=== PATIENT | female | born 1970 | race Caucasian/White ===

== ENCOUNTER 2020-02-13 10:57 | Outpatient (CLI) | payer BC, SELFPAY ==
--- NOTE | 2020-02-13 11:04 | MM_ITS ---
WS: [id number] BILATERAL SCREENING DIGITAL MAMMOGRAM WITH CAD HISTORY: SCREENING COMPARISON: 02/14/2019, 01/10/2019 and 03/24/2013 Bilateral CC and MLO views submitted. Computer aided detection analyzed. Breast composition: The breasts are heterogeneously dense, which may obscure small masses. No suspici ous masses, microcalcifications or architectural distortion. Nodule in the posterior RIGHT breast is again identified and stable since 2012. No interval change or distortion. MM/[place] [id number] IMPRESSION: BI-RADS: 2-Benign FOLLOW UP: 1 Year Follow-up
== END 2020-02-13 10:58 | disposition home or self-care (01) ==
LOC: RADSHAW 11:01
PROVIDERS: PCP Nurse Practitioner Family; Visit Provider Nurse Practitioner Family
DX: Z12.31 Encounter for screening mammogram for malignant neoplasm of breast (principal)
CPT/HCPCS: 77067

== ENCOUNTER 2020-03-06 14:57 | Outpatient (CLI) | payer BC, SELFPAY ==
--- NOTE | 2020-03-06 15:08 | XR_ITS ---
WS: [id number] LEFT KNEE: 2 VIEW(S) TECHNIQUE: AP and lateral. HISTORY: PAIN IN LEFT KNEE COMPARISON: None available. No fracture or dislocation. No joint space narrowing or osteophytes. No joint effusion. No soft tissue abnormality. XR/XR knee LT 1-2V [id number] IMPRESSION: Normal LEFT knee.
== END 2020-03-06 14:58 | disposition home or self-care (01) ==
LOC: RADWPI 14:59
PROVIDERS: PCP Nurse Practitioner Family; Visit Provider Nurse Practitioner Family
DX: M25.562 Pain in left knee (principal)
CPT/HCPCS: 73560

== ENCOUNTER 2020-04-09 10:55 | Outpatient (RCR) | payer BC, SELFPAY | END 2020-04-16 23:59 | disposition home or self-care (01) | LOC: SPT 10:55 | PROVIDERS: PCP Nurse Practitioner Family; Referring Provider Orthopaedic Surgery; Visit Provider Orthopaedic Surgery | DX: M25.562 Pain in left knee (principal) | CPT/HCPCS: 97110; 97161 ==

== ENCOUNTER 2020-04-17 06:00 | Outpatient (RCR) | payer BC, SELFPAY | END 2020-05-07 23:00 | disposition home or self-care (01) | LOC: SPT 06:00 | PROVIDERS: PCP Nurse Practitioner Family; Referring Provider Orthopaedic Surgery; Visit Provider Orthopaedic Surgery | DX: M25.562 Pain in left knee (principal) | CPT/HCPCS: 97110 ==

== ENCOUNTER 2021-12-17 10:25 | Outpatient (CLI) | payer BC, SELFPAY ==
--- NOTE | 2021-12-17 10:33 | MM_ITS ---
WS: [id number] BILATERAL SCREENING DIGITAL BREAST TOMOSYNTHESIS MAMMOGRAM WITH CAD HISTORY: SCREENING COMPARISON: 02/13/2020, 01/10/2019 Bilateral CC and MLO views with tomosynthesis and synthetic mammography submitted. Computer aided det ection analyzed. Breast composition: There are scattered areas of fibroglandular density. No suspicious masses, microc alcifications or architectural distortion. Focal asymmetry in the upper-outer quadrant of the LEFT br east is stable since 02/13/2020. No suspicious mass or distortion. MM/[place] [id number] IMPRESSION: BI-RADS: 2-Benign FOLLOW UP: 1 Year Follow-up
== END 2021-12-17 10:26 | disposition home or self-care (01) ==
PROVIDERS: PCP Nurse Practitioner Family; Visit Provider Nurse Practitioner Family
DX: Z12.31 Encounter for screening mammogram for malignant neoplasm of breast (principal)
CPT/HCPCS: 77063; 77067

== ENCOUNTER 2022-01-31 06:48 | Outpatient (CLI) | payer BC, SELFPAY ==
--- NOTE | 2022-01-31 | CT_ITS ---
WS: [id number] CT head wo con* [id number] REASON FOR EXAM: DIZZINESS AND GIDDINESS IV CONTRAST ADMINISTERED: None TOTAL EXAM DLP: 968.[address] scans at [facility] use at least one of these dose optimization techniques: automat ed exposure control; mA and/or kV adjustment per patient size (includes targeted exams where dose is matched to clinical indication); or iterative reconstruction. FINDINGS: Examination is unchanged compared to previous study of 03/22/2016. No midline shift or other significant mass effect. No findings of intracranial hemorrhage. No significant focal brain parenchymal abnormality. The brainstem is normal. Normal CSF spaces. Base of skull and bony calvarium are intact. CT/CT head wo con* [id number] IMPRESSION: No significant intracranial abnormality.
== END 2022-01-31 06:49 | disposition home or self-care (01) ==
LOC: RAD 06:48
PROVIDERS: PCP Nurse Practitioner Family; Visit Provider Nurse Practitioner Family
DX: R42 Dizziness and giddiness (principal)
CPT/HCPCS: 70450

== ENCOUNTER → 2022-06-09 14:32 | Outpatient (BNVA) | payer BC, SELFPAY | PROVIDERS: PCP Nurse Practitioner Family; Visit Provider Podiatrist Foot & Ankle Surgery | DX: M72.2 Plantar fascial fibromatosis (principal) | CPT/HCPCS: 73630 ==

== ENCOUNTER 2022-07-10 06:53 | Day surgery (SDC) | payer BC, SELFPAY ==
[2022-07-08 08:39] VITALS: BMI 29.0
[2022-07-10 07:08] VITALS: BP 120/68; PULSE 60; RESP 16; O2SAT 98
[2022-07-10] MEDS: sodium chloride 0.9% 1,000 ML 30 ML IV (07:21)
--- NOTE | 2022-07-10 08:03 | ANES.PREANE2 ---
Pre-Anesthetic Assessment Height/Weight: Height 1.68 m Weight 81.647 kg Pulse Resp BP Pulse Ox O2 Del Method 60 16 120/68 98 07/10/22 07:08 07/10/22 07:08 07/10/22 07:08 07/10/22 07:08 07/10/22 07:08 Preop Diagnosis: screening Operation Date: 07/10/22 08:30 Proposed Procedures p Colonoscopy 83209,z12.11(Not Applicable) - Rebel Alexander, DO Was Beta Deny taken within 24 hours: N/A Was Clonidine taken within 24 hours: N/A Last intake: Intake Last Liquid Date 07/09/22 Last Liquid Time 22:00 Last Solid Date 07/08/22 Last Solid Time 16:00 Last Intake: 00:01 Exam alert and oriented x 3 Airway Submandibular: within normal limits Cervical ROM: within normal limits Mallampati: Class II Dentition: full History/ROS No significant history except as noted Pulmonary None reported CV/HEM None reported None reported Hepatic None reported GI None reported Metabolic [place] [facility] [place] reported Neuropsych None reported Anesthetic Plan ASA status: 1 Anesthesia: MAC Risk of > 500 ml blood loss (7ml/kg in children): No Medications/Allergies Home Medications Medication Instructions Recorded Confirmed Last Taken Type levothyroxine 25 mcg tablet 50 mcg PO DAILY 03/28/20 07/08/22 07/09/22 History sertraline 25 mg tablet 50 mg PO DAILY 03/28/20 07/08/22 07/09/22 History triamcinolone acetonide 0.1 % 1 applic topical DAILY PRN Skin 03/28/20 07/08/22 Unknown History topical cream Cleansing meloxicam 15 mg tablet 15 mg PO DAILY #30 tabs 07/08/22 07/09/22 07/09/22 Rx Allergies Allergy/AdvReac Type Severity Reaction Status Date / Time codeine AdvReac vomiting Verified 07/10/22 07:06 Current Medications Generic Name Dose Route Start Last Admin Trade Name Freq PRN Reason Stop Dose Admin Sodium Chloride 1,000 mls @ 30 mls/hr 07/10/22 07:00 07/10/22 07:21 Sodium Chloride 0.9% IV 07/11/22 06:59 30 mls/hr .Q24H CEZAR Administration PFSH Anesthesia Social History Smoking and tobacco status: never smoked Alcohol intake: current Alcohol intake frequency: few times a month Data Anesthesia Cardiac Studies: No Data to Display
--- NOTE | 2022-07-10 08:25 | PM.HP ---
Providers/Chief Complaint Primary Care Provider: Reena Randhawa NP Chief Complaint: Z12.11 History of Present Illness Natasha Wilder is a 52 year old female here for her first screening colonoscopy. She denies any family history of colon cancer, abdominal pain, nausea, emesis, diarrhea, constipation, hematochezia and/or melena Review of Systems General: Reports: 10 or more systems reviewed and unremarkable except in HPI and below Medications/Allergies Home Medications Medication Instructions Recorded Confirmed Last Taken Type levothyroxine 25 mcg tablet 50 mcg PO DAILY 03/28/20 07/08/22 07/09/22 History sertraline 25 mg tablet 50 mg PO DAILY 03/28/20 07/08/22 07/09/22 History triamcinolone acetonide 0.1 % 1 applic topical DAILY PRN Skin 03/28/20 07/08/22 Unknown History topical cream Cleansing meloxicam 15 mg tablet 15 mg PO DAILY #30 tabs 07/08/22 07/09/22 07/09/22 Rx Allergies Allergy/AdvReac Type Severity Reaction Status Date / Time codeine AdvReac vomiting Verified 07/10/22 07:06 PFSH Acute PFSH: Social History Smoking and tobacco status: never smoked Alcohol intake: current Alcohol intake frequency: few times a month Vitals/I&O/Wt Last Vital Signs Pulse 60 07/10/22 07:08 Resp 16 07/10/22 07:08 BP 120/68 07/10/22 07:08 Pulse Ox 98 07/10/22 07:08 O2 Del Method 07/10/22 07:08 Weight last 48 hrs Weight 180 lb Physical Exam Narrative: General : Patient is well developed , no acute distress, oriented x3 Head : Normal cephalic, a-traumatic. Ears : Pinnae and external canal are normal. Hearing is normal. Eyes : PERRLA, Sclera and injection are normal. No conjunctival discharge. Nose : Mucous membranes are without erythema. Throat : buccal mucosa is normal, gums are without significant recession or hypertrophy. Lungs : Equal chest rise bilaterally, no use of accessory muscles, trachea is midline. Cor : Rate and rhythm are normal. Abdomen : Soft, ND, NT, no g/r/m Extremities : No edema, no cyanosis or clubbing, dorsalis pedis pulses are present bilaterally, non-tender to palpation of calves. Upper extremities are normal bilaterally. Back : non-tender to palpation, no CVA tenderness. Neuro : CN II - XII intact, Upper and lower extremities have equal and full strength A&P Assessment and plan (1) Colon cancer screening: Plan Colonoscopy The risks and benefits of the procedure, including bleeding, infection, intestinal perforation requiring surgery, missed lesion were explained to the patient. The patient is understanding of the risks and wishes to proceed. Attestations Medical Necessity Statement*: Home Coding Level of Care Code Acute Code for Chg Fwd Diagnoses Colon cancer screening Z12.11
[2022-07-10 08:53] VITALS: BP 117/76; PULSE 65; RESP 20; TEMP 36.2; O2SAT 94
[2022-07-10 09:08] VITALS: BP 134/84; PULSE 57; RESP 18; O2SAT 100
--- NOTE | 2022-07-10 13:25 | ANE.PACU2 ---
Inpatient post-anesthesia follow up: Airway intact: Yes Vital signs: Temperature 97.1 F Pulse Rate 57 Respiratory Rate 18 Blood Pressure 134/84 Pulse Oximetry 100 Oxygen Delivery Me thod Room Air Oxygen Flow Rate Fraction of Inspir ed Oxygen Hydration adequate: Yes Nausea and vomiting: No Pain level: 1 Mental status: Baseline
== END 2022-07-10 09:38 | disposition home or self-care (01) ==
PROVIDERS: PCP Nurse Practitioner Family; Visit Provider Surgery
PROC: 0DJD8ZZ Inspection of Lower Intestinal Tract, Via Natural or Artificial Opening Endoscopic (ICD-10-PCS; CPT 45378; principal; 2022-07-10 08:30)
DX: Z12.11 Encounter for screening for malignant neoplasm of colon (principal); D12.5 Benign neoplasm of sigmoid colon; D12.8 Benign neoplasm of rectum
CPT/HCPCS: 45385; 88305; J2704; J7030

== ENCOUNTER 2022-12-22 10:00 | Outpatient (CLI) | payer BC, SELFPAY | END 2022-12-22 10:01 | disposition home or self-care (01) | LOC: SLEEP 12-23 11:02 | PROVIDERS: PCP Nurse Practitioner Family; Visit Provider Nurse Practitioner Family | DX: G47.10 Hypersomnia, unspecified (principal); G47.33 Obstructive sleep apnea (adult) (pediatric); R53.82 Chronic fatigue, unspecified; G47.36 Sleep related hypoventilation in conditions classified elsewhere | CPT/HCPCS: G0399 ==

== ENCOUNTER 2023-01-07 10:19 | Outpatient (CLI) | payer BC, SELFPAY ==
--- NOTE | 2023-01-07 10:30 | MM_ITS ---
WS: [id number] BILATERAL SCREENING DIGITAL TOMOSYNTHESIS MAMMOGRAM WITH CAD HISTORY: SCREENING COMPARISON: 12/17/2021, 02/13/2020 Bilateral CC and MLO views with tomosynthesis and synthetic mammography submitted. Computer aided det ection analyzed. Breast composition: The breasts are heterogeneously dense, which may obscure small masses. No suspici ous masses, microcalcifications or architectural distortion. IMPRESSION: MM/[place] [id number] BI-RADS: 1-Negative FOLLOW UP: 1 Year Follow-up
== END 2023-01-07 10:20 | disposition home or self-care (01) ==
LOC: RAD 10:25 → MOBLMAM 10:30
PROVIDERS: PCP Nurse Practitioner Family; Visit Provider Nurse Practitioner Family
DX: Z12.31 Encounter for screening mammogram for malignant neoplasm of breast (principal)
CPT/HCPCS: 77063; 77067

== ENCOUNTER → 2024-12-21 08:34 | Outpatient (BNVA) | payer BC, SELFPAY | PROVIDERS: PCP Nurse Practitioner Family; Visit Provider Nurse Practitioner | DX: M17.11 Unilateral primary osteoarthritis, right knee (principal); G89.29 Other chronic pain | CPT/HCPCS: 73560; 73565 ==

== ENCOUNTER 2025-01-11 08:53 | Outpatient (CLI) | payer BC, SELFPAY ==
--- NOTE | 2025-01-11 09:00 | MM_ITS ---
WS: [id number] BILATERAL SCREENING DIGITAL TOMOSYNTHESIS MAMMOGRAM WITH CAD HISTORY: SCREENING COMPARISON: 01/07/2023, 12/17/2021, 02/13/2020 Bilateral CC and MLO views with tomosynthesis and synthetic mammography submitted. Computer aided detection analyzed. Breast composition: The breasts are heterogeneously dense, which may obscure small masses. No suspicious masses, microcalcifications or architectural distortion. Dense asymmetries in the upper outer quadrants of each breast but greatest on the LEFT. This asymmetry has been present on prior years. No mass identified. MM/MM scr tomosynthesis [id number] IMPRESSION: BI-RADS: 2 - Benign FOLLOW UP: 1 Year Follow-up
== END 2025-01-11 08:54 | disposition home or self-care (01) ==
PROVIDERS: PCP Nurse Practitioner Family; Visit Provider Nurse Practitioner Family
DX: Z12.31 Encounter for screening mammogram for malignant neoplasm of breast (principal); R92.333 Mammographic heterogeneous density, bilateral breasts; N64.89 Other specified disorders of breast
CPT/HCPCS: 77063; 77067

== ENCOUNTER → 2025-05-01 07:49 | Outpatient (BNVA) | payer BC, SELFPAY | PROVIDERS: PCP Nurse Practitioner Family; Visit Provider Nurse Practitioner | DX: M17.12 Unilateral primary osteoarthritis, left knee (principal); M17.11 Unilateral primary osteoarthritis, right knee; M62.81 Muscle weakness (generalized); Z71.89 Other specified counseling | CPT/HCPCS: 73560; 73565 ==